=== PATIENT | male | born 1950 | race Caucasian/White ===

== ENCOUNTER → 2016-07-14 | Outpatient (CLI) | payer OTHER ==
[~2016-07-14] MED LIST: ALBU0.5N2 NEB; ALBUAER INH; FAMO20TA9 PO; MULT-506 PO; OXYC-57 PO; TIOTCAP INH
[2016-07-14 10:01] LABS: ALT/SGPT 15 U/L (12-78); BLOOD UREA NITROGEN 12 mg/dl (7-18); BUN/CREATININE RATIO 11.9 (10-20); CALCIUM 8.7 mg/dl (8.5-10.1); CARBON DIOXIDE 30 mmol/L (21-32); CHLORIDE 104 mmol/L (98-107); CHOLESTEROL 193 mg/dl (0-200); CREATININE 0.98 mg/dl (0.60-1.40); GLUCOSE 96 mg/dl (70-99); SODIUM 141 mmol/L (136-145); TRIGLYCERIDES 141 mg/dl (0-150); VERY LOW DENSITY LIPOPROT CALC 28 mg/dl
[2016-07-14 10:05] LABS: ALB/GLOB RATIO 1.3 (0.9-2); ALKALINE PHOSPHATASE 55 U/L (45-117); AST/SGOT 15 U/L (15-37); CHOLESTEROL/HDL RATIO 3.6; HDL CHOLESTEROL 53 mg/dl; LDL CHOLESTEROL CALCULATED 112 mg/dl
[2016-07-14 10:41] LABS: ESTIMATED AVERAGE GLUCOSE 126 mg/dl; HA1C FLAG Normal (Normal)
== END | disposition home or self-care (01) ==
LOC: C.LAB 07:00
PROVIDERS: ATTEND Family Medicine
DX: Z13.220 Encounter for screening for lipoid disorders (principal); R73.9 Hyperglycemia, unspecified; N40.0 Benign prostatic hyperplasia without lower urinary tract symptoms; Z11.59 Encounter for screening for other viral diseases